=== PATIENT | male | born 1970 | race Caucasian/White ===

== ENCOUNTER → 2020-12-01 | Outpatient (CLI) | payer OTHER ==
[~2020-12-01] MED LIST: LEVAQUIN500 MG PO
[2020-12-01 11:35] LABS: HEMOGLOBIN 15.1 gm/dl (14.0-17.5); RED BLOOD COUNT 5.08 M/UL (4.20-5.50); WHITE BLOOD COUNT 9.8 K/UL (4.5-11.0)
[2020-12-01 11:53] LABS: BUN/CREATININE RATIO 17 (0-10)
== END ==
LOC: LAB 11:02
PROVIDERS: Nurse Practitioner
DX: R79.89 Other specified abnormal findings of blood chemistry (principal); R68.89 Other general symptoms and signs; E78.5 Hyperlipidemia, unspecified; R53.83 Other fatigue; R73.09 Other abnormal glucose; E55.9 Vitamin D deficiency, unspecified
CPT/HCPCS: 80053; 80061; 82607; 83036; 84153; 84443; 85025

== ENCOUNTER → 2020-12-28 | Outpatient (CLI) | payer OTHER | LOC: RAD 10:03 | DX: R06.02 Shortness of breath (principal); R07.9 Chest pain, unspecified; R68.89 Other general symptoms and signs; R79.89 Other specified abnormal findings of blood chemistry | CPT/HCPCS: 71046; 93005 ==

== ENCOUNTER 2021-04-28 14:38 | Emergency (ER) | payer OTHER ==
[2021-04-28] MEDS ORDERED: ANTIBIOTIC28.4 GM TP (15:00)
[2021-04-28] MEDS ORDERED: IBUPROFEN800 MG PO (15:00)
== END 2021-04-28 15:20 | disposition home or self-care (01) ==
LOC: ER1 14:38
DX: T23.232A Burn of second degree of multiple left fingers (nail), not including thumb, initial encounter (principal); T23.202A Burn of second degree of left hand, unspecified site, initial encounter; F17.210 Nicotine dependence, cigarettes, uncomplicated; T31.0 Burns involving less than 10% of body surface; X08.8XXA Exposure to other specified smoke, fire and flames, initial encounter
CPT/HCPCS: 99283